=== PATIENT | male | born 1950 | race Caucasian/White ===

== ENCOUNTER 2021-06-27 13:58 | Emergency (ER) | payer MEDICARE, BC ==
[~2021-06-27] VITALS: Ht 172.7 cm; Wt 90.9 kg
[2021-06-27] MEDS ORDERED: NALOXONE 2 MG/2 ML DISP.SYRIN. ONE (14:07)
[2021-06-27] MEDS ORDERED: NALOXONE 0.4 MG/ML VIAL. ONE (14:07)
[2021-06-27] MEDS ORDERED: ONDANSETRON PF 4 MG/2 ML VIAL. ONE (14:14)
[2021-06-27] MEDS ORDERED: ONDANSETRON PF 4 MG/2 ML VIAL. IVP ONE (14:15)
[2021-06-27] MEDS ORDERED: NALOXONE 0.4 MG/ML VIAL. IV ONE ×3 (14:15→16:45)
--- NOTE | 2021-06-27 14:42 | EKG ---
[address] [address] Test Date: 2021-06-27 Test Time: 14:07:02 Pat Name: WALLY SOLANO Department: Room: Gender: M [employer] Manager: DANIEL : 1950 Requested By: CAREY GANN Order Number: [id number] Reading MD: Measurements Intervals [place] Rate: 96 P: OR: QRS: 62 QRSD: 82 T: 12 QT: 320 QTc: 405 Interpretive Statements IRREGULAR RHYTHM, NO P-WAVE FOUND OTHERWISE NORMAL ECG RI6.02 No previous ECG available for comparison
[2021-06-27 14:49] LABS: BASO % 0 % (0-3); EOS % 0 % (0-3); HEMATOCRIT 37.4 % (39.0-53.0); HEMOGLOBIN 12.2 g/dL (13.0-17.5); LYMPH # 1.3 x10^3/uL (1.0-4.8); LYMPH % 19 % (24-48); MEAN CORPUSCULAR HEMOGLOBIN 30 pg (25-35); MEAN CORPUSCULAR HGB CONC 33 g/dL (31-37); MEAN CORPUSCULAR VOLUME 92 fL (79-100); MONO # 0.6 x10^3/uL (0.0-1.1); MONO % 10 % (0-9); NEUT # 4.5 x10^3uL (1.8-7.7); NEUT % 70 % (31-73); PLATELET COUNT 171 x10^3/uL (140-400); RED BLOOD COUNT 4.05 x10^6/uL (4.30-5.70); RED CELL DISTRIBUTION WIDTH 15.6 % (11.5-14.5); WHITE BLOOD COUNT 6.5 x10^3/uL (4.0-11.0)
[2021-06-27 14:51] LABS: CALCIUM 8.1 mg/dL (8.5-10.1); CREATININE 2.3 mg/dL (0.7-1.3); GFR 28.1; POTASSIUM 4.1 mmol/L (3.5-5.1)
--- NOTE | 2021-06-27 14:51 | RAD ---
XR CHEST 1V INDICATION: dyspnea . COMPARISON STUDY: None. FINDINGS: Lungs: Low lung volumes. Bilateral perihilar opacity. Pleura: No pleural effusion or pneumothorax. Heart and Mediastinum: Cardiomegaly. Atherosclerosis of the thoracic aorta. IMPRESSION: Bilateral perihilar opacities, which could represent edema or infection. Electronically signed by: Sam Pollock MD (06/27/2021 2:48 PM) [facility]
[2021-06-27 15:06] LABS: ALBUMIN 3.2 g/dL (3.4-5.0); ALBUMIN/GLOBULIN RATIO 0.9 (1.0-1.7); TOTAL BILIRUBIN 0.2 mg/dL (0.2-1.0); TOTAL PROTEIN 6.7 g/dL (6.4-8.2)
[2021-06-27] MEDS: NALOXONE 0.4 MG/ML VIAL. IV ONE ×2 (16:13→16:15)
--- NOTE | 2021-06-27 16:53 | PHYS DOC ---
Past History Additional Past Medical Histor: PTSD Past Surgical History: Cholecystectomy Additional Past Surgical Histo: PAIN STIMULATOR, RIGHT LEG AMPUTATION General Adult EDM: Chief Complaint: OVERDOSE HPI: HPI: Patient is a 71-year-old male who presents with altered mentation. The patient was brought in by EMS. His sats were 80% when they arrived to the house. Patient's been fairly unresponsive on the ride here. He does have a history of some chronic pain issues. He has a fentanyl patch 100 mcg on the left shoulder. He is also on some oral opiates, its unclear which. Patient is somnolent and u nable to provide with any further history. Review of Systems: Review of Systems: Not obtainable secondary to his altered mentation Current Medications: Current Meds: Current Medications Medications (Trade) Dose Ordered Sig/Diana Start Time Stop Time Status Last Admin Dose Admin Naloxone HCl (Narcan) 0.2 mg 1X ONCE 06/27/21 16:45 06/27/21 16:46 UNV 06/27/21 16:36 0.2 MG Ondansetron HCl (Zofran) 8 mg 1X ONCE 06/27/21 14:15 06/27/21 14:53 DC 06/27/21 14:39 8 MG Allergies: Allergies: Allergies Coded Allergies Type Severity Reaction Last Updated Verified Penicillins Allergy Unknown 06/27/21 Yes gabapentin Allergy Unknown 06/27/21 Yes Physical Exam: PE: Constitutional: Well developed, well nourished, unresponsive, non-toxic appearance. HENT: Normocephalic, atraumatic, bilateral external ears normal, mucosa moist, nose normal. Eyes: EOMI, conjunctiva normal, no discharge. Pupils pinpoint Neck: Normal range of motion, supple, no stridor, no meningeal signs. Cardiovascular: Regular rate and rhythm Lungs & Thorax: Bilateral breath sounds clear to auscultation Abdomen: Soft, no obvious masses Skin: Warm, dry, no erythema, no rash. Extremities: Right above-knee amputation Neurologic: Patient is not alert nor oriented, normal motor function, normal sensory function, no focal deficits noted. Psychologic: Unresponsive Current Patient Data: Labs: Laboratory Tests Test 06/27/21 14:25 White Blood Count 6.5 x10^3/uL (4.0-11.0) Red Blood Count 4.05 x10^6/uL (4.30-5.70) L Hemoglobin 12.2 g/dL (13.0-17.5) L Hematocrit 37.4 % (39.0-53.0) L Mean Corpuscular Volume 92 fL (79-100) Mean Corpuscular Hemoglobin 30 pg (25-35) Mean Corpuscular Hemoglobin Concent 33 g/dL (31-37) Red Cell Distribution Width 15.6 % (11.5-14.5) H Platelet Count 171 x10^3/uL (140-400) Neutrophils (%) (Auto) 70 % (31-73) Lymphocytes (%) (Auto) 19 % (24-48) L Monocytes (%) (Auto) 10 % (0-9) H Eosinophils (%) (Auto) 0 % (0-3) Basophils (%) (Auto) 0 % (0-3) Neutrophils # (Auto) 4.5 x10^3uL (1.8-7.7) Lymphocytes # (Auto) 1.3 x10^3/uL (1.0-4.8) Monocytes # (Auto) 0.6 x10^3/uL (0.0-1.1) Eosinophils # (Auto) 0.0 x10^3/uL (0.0-0.7) Basophils # (Auto) 0.0 x10^3/uL (0.0-0.2) Sodium Level 143 mmol/L (136-145) Potassium Level 4.1 mmol/L (3.5-5.1) Chloride Level 106 mmol/L (98-107) Carbon Dioxide Level 27 mmol/L (21-32) Anion Gap 10 (6-14) Blood Urea Nitrogen 35 mg/dL (8-26) H Creatinine 2.3 mg/dL (0.7-1.3) H Estimated GFR (Cockcroft-Gault) 28.1 BUN/Creatinine Ratio 15 (6-20) Glucose Level 132 mg/dL (70-99) H Lactic Acid Level 1.6 mmol/L (0.4-2.0) Calcium Level 8.1 mg/dL (8.5-10.1) L Total Bilirubin 0.2 mg/dL (0.2-1.0) Aspartate Amino Transferase (AST) 49 U/L (15-37) H Alanine Aminotransferase (ALT) 101 U/L (16-63) H Alkaline Phosphatase 91 U/L (46-116) Total Protein 6.7 g/dL (6.4-8.2) Albumin 3.2 g/dL (3.4-5.0) L Albumin/Globulin Ratio 0.9 (1.0-1.7) L Vital Signs: Vital Signs Date Time Temp Pulse Resp B/P (MAP) Pulse Ox O2 Delivery O2 Flow Rate FiO2 06/27/21 13:58 98.4 105 12 113/66 (82) 90 NonRebreather Mask 15.0 EKG: EKG: [] Radiology/Procedures: Radiology/Procedures: [] Heart Score: C/O Chest Pain: N/A Risk Factors: Risk Factors: DM, Current or recent (<one month) smoker, HTN, HLP, family history of CAD, obesity. Risk Scores: Score 0 - 3: 2.5% MACE over next 6 weeks - Discharge Home Score 4 - 6: 20.3% MACE over next 6 weeks - Admit for Clinical Observation Score 7 - 10: 72.7% MACE over next 6 weeks - Early Invasive Strategies Course & Med Decision Making: Course & Med Decision Making Pertinent Labs and Imaging studies reviewed. (See chart for details) [] This is a 71-year-old male presents with symptoms are consistent with an opiate overdose. He was given 0.4 mg Narcan IV and immediately woke up. After an hour and 1/2 to 2 hours of observation he again became somnolent. He was given an additional 0.2 mg of Narcan which has aroused him to some degree. At t his point we will admit him as I am a little concerned that he will need multiple doses or potentially a Narcan drip. I spoke with Dr. Tomlin the hospitalist on-call at [facility], Dr. Tomlin has been kind enough to accept the patient for transfer. Patient is in guarded condition at this time. Dragon Disclaimer: [employer]forest Disclaimer: This electronic medical record was generated, in whole or in part, using a voice recognition dictation system. Departure Departure: Impression: Primary Impression: Opiate overdose Disposition: ADMITTED INPATIENT Condition: GUARDED Referrals: OSMIN LEE MD (PCP) CAREY GANN MD Jun 27, 2021 16:53
[2021-06-27] MEDS ORDERED: IV RINGERS SOLUTION,LACTATED 1,000 ML IV ONE (19:00)
[2021-06-27 19:32] VITALS: BP 136/73
[2021-06-27 19:36] LABS: BACTERIA,URINE MOD /HPF (0-FEW); CLARITY,URINE CLEAR; COLOR,URINE YELLOW; GLUCOSE,URINE NEG (NEG); NITRITE,URINE NEG (NEG); SQUAMOUS EPITHELIAL CELL,UR MOD /LPF; UROBILINOGEN,URINE 0.2 mg/dL (0.2 mg/dL)
[2021-06-27 19:37] LABS: HYALINE CASTS, URINE MOD /HPF
[2021-06-27 19:38] LABS: BARBITURATES NEG (NEG); BENZODIAZEPINES NEG (NEG); CANNABINOIDS NEG (NEG); COCAINE NEG (NEG); METHADONE NEG (NEG); OPIATES POS (NEG); PHENCYCLIDINE NEG (NEG)
[2021-06-27 19:39] LABS: AMPHETAMINE/METHAMPHETAMINE NEG (NEG)
[2021-06-27 19:49] LABS: ACETAMIN < 2.0 mcg/mL (10-30); SALIC 1.3 mg/dL (2.8-20.0)
--- NOTE | 2021-06-27 19:50 | RAD ---
CT scan of the head without contrast 06/27/2021 Clinical History: Altered mental status. Technique: Unenhanced, contiguous, 5 mm axial sections were obtained through the head. One or more of the following individualized dose reduction techniques were utilized for this study: 1. Automated exposure control. 2. Adjustment of the mA and/or kV according to patient size. 3. Use of iterative reconstruction technique. Findings: There is generalized parenchymal atrophy. Areas of decreased attenuation are seen within th e periventricular and subcortical white matter of both cerebral hemispheres consistent with areas of small vessel ischemic disease. No acute parenchymal abnormality is seen. No extra-axial fluid collect ion is noted. No skull fracture is seen. Impression: No acute intracranial abnormality is seen. Electronically signed by: Popeye Leahy MD (06/27/2021 7:48 PM) [id number]
[2021-06-27] MEDS ORDERED: ASPIRIN CHEWABLE 81 MG TABLET. ONE (19:59)
--- NOTE | 2021-06-27 19:59 | RAD ---
CT scan of the chest without contrast 06/28/2019 CLINICAL HISTORY: Shortness of breath. Perihilar opacities seen on chest radiograph. TECHNIQUE: Unenhanced contiguous, 0.625 mm axial sections were obtained through the chest and upper a bdomen. Instructions sagittal, axial and coronal images were obtained. One or more of the following individualized dose reduction techniques were utilized for this study: 1. Automated exposure control. 2. Adjustment of the mA and/or kV according to patient size. 3. Use of iterative reconstruction technique. FINDINGS: Comparison is made to a portable chest radiograph performed earlier today. Atherosclerotic calcification of the thoracic aorta and its branches is seen. The thoracic aorta is t ortuous but tapers normally. Fairly extensive coronary artery calcifications are seen. The heart is m ildly enlarged. No hilar, mediastinal or axillary lymphadenopathy is seen. Small calcified hilar lymp h nodes are noted. Small calcified granulomas are seen involving both lungs. Dependent subsegmental atelectasis is seen involving both lower lobes. Subsegmental atelectasis is seen involving the lingula. No area of consol idation is seen. No pneumothorax or pleural effusion is noted. Images through the upper abdomen demonstrate decreased attenuation liver parenchyma consistent with f atty infiltration. Surgical clips are seen within the gallbladder fossa consistent with cholecystecto my. Atherosclerotic calcification of the abdominal aorta is noted. Minimal S-shaped curvature of the thoracolumbar spine is seen. Degenerative changes are seen involving the thoracic spine. IMPRESSION: No acute abnormality is seen. Electronically signed by: Popeye Leahy MD (06/27/2021 7:56 PM) [id number]
[2021-06-27] MEDS ORDERED: ASPIRIN CHEWABLE 81 MG TABLET. PO ONE (20:00)
[2021-06-27] MEDS ORDERED: KETOROLAC 30 MG/ML VIAL. ONE (20:07)
[2021-06-27] MEDS ORDERED: KETOROLAC 30 MG/ML VIAL. IVP ONE (20:30)
== END 2021-06-27 20:32 | disposition short-term general hospital (02) ==
LOC: ER 13:58
DX: T40.601A Poisoning by unspecified narcotics, accidental (unintentional), initial encounter (principal); Z20.822 Contact with and (suspected) exposure to COVID-19; Z89.611 Acquired absence of right leg above knee; Z88.0 Allergy status to penicillin; Z88.8 Allergy status to other drugs, medicaments and biological substances; Y92.89 Other specified places as the place of occurrence of the external cause
CPT/HCPCS: 36415; 70450; 71045; 71250; 80053; 80307; 80329; 81001; 83605; 83735; 84484; 85025; 87040; 87086; 87426; 93005; 96365; 96374; 96375; 96376; 99285; C9803; J1885; J1956; J2310; J2405; J7120; U0003; G0480